=== PATIENT | male | born 1980 | race Caucasian/White ===

== ENCOUNTER 2022-09-21 06:08 | Emergency (ER) | payer MEDICAID, OTHER ==
--- NOTE | 2022-09-21 06:25 | ED General ---
General Chief Complaint: General Problems/Pain Stated Complaint: BODY FEELS HEAVY Source of Information: Patient Exam Limitations: No Limitations History of Present Illness Date Seen by Provider: Sep 21, 2022 Time Seen by Provider: 06:20 Initial Comments Patient is a 42-year-old male who presents to the emergency department today with a chief complaint of his body feeling "heavy". He states that he woke up at approximately 530 this morning which is unusual for him as he normally sleeps until 8 AM after having had a dream that he was in a doctor's office and was given a very powerful sedative. In his dream he recalls being given the medication, becoming unconscious and then waking up feeling like he was "sinki ng". 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 He denies any headache, visual changes, speech difficulties. No problems with balance or coordination. He denies any intoxicants. He was not given any unusual foods or medications yesterday. No alcohol last night. The last time he smoked marijuana has been about a year ago but he states this sensation was the same as "when you are coming off of marijuana". No recent fevers or chills. He had a slight runny nose a few days ago as his 2 very young children have recently had RSV. No COVID symptoms, cough, shortness of breath, nausea vomiting or diarrhea. He has had a slight increase in headache over the last couple of days but attributes these to previous neck surgery. They are relieved with Tylenol. No family history of brain tumor, young stroke. Currently feeling improved. Does have a history of diabetes on metformin and Ozempic. He states he checked his blood sugar this morning it was 107. All other review of systems reviewed and negative except as stated. Timing/Duration: 1 Hour Severity: Moderate Associated Systoms: Headaches Allergies and Home Medications Allergies Coded Allergies: No Known Drug Allergies (Unverified , 09/21/22) Patient Home Medication List Home Medication List Reviewed: Yes Review of Systems Review of Systems Constitutional: see HPI EENTM: no symptoms reported Respiratory: no symptoms reported Cardiovascular: no symptoms reported Gastrointestinal: no symptoms reported Genitourinary: no symptoms reported Musculoskeletal: no symptoms reported Skin: no symptoms reported Psychiatric/Neurological: Weakness All Other Systems Reviewed Negative Unless Noted: Yes Past Prhqqix-Lbuvda-Iryntg Hx Patient Social History Smoking Status: Former Smoker Substance use?: No Alcohol Use?: No Immunizations Up To Date Influenza Vaccine Up-to-Date: Yes; Up-to-Date COVID19 Vaccine 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 oz. kg; BMI Method: General Appearance: No Apparent Distress, WD/WN Eyes: Bilateral Eye Normal Inspection, Bilateral Eye PERRL, Bilateral Eye EOMI HEENT: PERRL/EOMI, TMs Normal, Normal ENT Inspection, Pharynx Normal, Tonsillar Enlargement Neck: Normal Inspection, Non Tender, Lymphadenopathy (L), Lymphadenopathy (R) Respiratory: Lungs Clear, Normal Breath Sounds, No Accessory Muscle Use, No Respiratory Distress Cardiovascular: Regular Rate, Rhythm, Normal Peripheral Pulses, Other (Brisk capillary refill) Gastrointestinal: Normal Bowel Sounds, Non Tender, Soft Extremity: Normal Inspection, Normal Range of Motion Neurologic/Psychiatric: Alert, Oriented x3, No Motor/Sensory Deficits, Normal Mood/Affect, 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; No Abnormal Cerebellar Tests, No Abnormal oil plant operator II-XII, No Abnormal Gait, No EOM Palsy, No Facial Droop, No Motor Weakness, No Sensory Deficit Skin: Normal Color, Warm/Dry Progress/Results/Core Measures Suspected Sepsis SIRS Temperature: Pulse: Respiratory Rate: Blood Pressure / Mean: Results/Orders My Orders Orders - DANIELLE IRVIN MD Accucheck Stat ONCE (09/21/22 06:35) Vital Signs/I&O 09/21/22 09/21/22 06:13 06:13 Temp 36.7 Pulse 91 Resp 16 B/P (MAP) 166/97 (120) Pulse Ox 98 O2 Delivery Room Air Room Air Capillary Refill : Progress Note : Time: 06:39 Progress Note Patient seen and examined, chief complaint "body feels heavy" after waking this morning. This was followed by a very vivid dream. Evaluation today includes physical exam with neurologic exam. Patient's vital signs are stable, he is slightly hypertensive with a blood pressure in the 160s over mid 90s. Normally he states he is in the 130s. Oxygen saturations 96% on room air. Heart rate in the upper 80s. No respiratory distress or increased work of breathing. No focal neurologic deficits. Speech is clear, rational and oriented. 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 He has never experienced anything like this before. He is feeling improved. We discussed family medical history, personal medical history, use of intoxicants. No red flags in his medical history. We will recheck his blood sugar here. Reassurance is provided. No clinical or objective findings to warrant laboratory studies, drug screen, imaging specifically CT brain. Patient is comfortable with the plan of care. All questions of been sought and answered. Departure Impression Primary Impression: Asthenia Disposition: 01 HOME, SELF-CARE Condition: Improved Departure-Patient Inst. Decision time for Depature: 06:44 Referrals: RENAN LYNN MD (PCP/Family) Primary Care Physician Patient Instructions: Fatigue ED Add. Discharge Instructions: Follow up with your Primary care doctor, especially if the recurs again. If you have any new, emergent of concerning symptoms that develop in the next 24-48 hours, please come back to the Emergency Department for re-evaluation. DANIELLE IRVIN MD Sep 21, 2022 06:25
[2022-09-21 06:59] VITALS: BP 146/85
== END 2022-09-21 06:59 | disposition home or self-care (01) ==
LOC: ER 06:10
DX: R53.1 Weakness (principal); R51.9 Headache, unspecified; I10 Essential (primary) hypertension; Z87.891 Personal history of nicotine dependence
CPT/HCPCS: 82947